=== PATIENT | female | born 1945 | race Caucasian/White ===

== ENCOUNTER → 2024-01-02 12:49 | Outpatient (REF) | payer OTHER, SELFPAY | LOC: RAD 12:49 | PROVIDERS: ATTENDING PHYSICIAN Surgery Vascular Surgery; FAMILY PHYSICIAN Family Medicine | DX: I65.29 Occlusion and stenosis of unspecified carotid artery (principal) | CPT/HCPCS: 93880 ==

== ENCOUNTER 2024-01-06 06:16 | Inpatient (IN) | payer OTHER, SELFPAY ==
[2024-01-03 11:00] VITALS: BMI 23.6
[2024-01-03 11:23] LABS: % Eosinophils 3.2 % (0-6); % Immature Granulocytes 0.4 % (0-0.5); % Monocytes 7.6 % (1.7-9.3); % Neutrophils 62.8 % (42.2-75.2); Absolute Basophils 0.1 10^3/uL (0-0.2); Absolute Eosinophils 0.3 10^3/uL (0-0.7); Absolute Lymphocytes 2.4 10^3/uL (1.2-3.4); Absolute Monocytes 0.7 10^3/uL (0.1-0.6); Hematocrit 39.8 % (37.0-47.0); Hemoglobin 13.2 g/dL (12.0-16.0); Mean Corp Hgb Conc. 33.2 g/dL (33.0-37.0); Mean Corpuscular Hgb 30.1 pg (27.0-31.0); Mean Corpuscular Volume 90.7 fL (81.0-99.0); Mean Platelet Volume 9.7 fL (7.4-10.4); Nucleated Red Blood Cells % 0 %; Platelet Count 303 10^3/uL (130-400); Red Blood Cell Count 4.39 10^6/uL (4.20-5.40); Red Cell Dist. Width 14.8 % (11.5-14.5); White Blood Cell Count 9.6 10^3/uL (4.8-10.8)
[2024-01-03 11:32] LABS: Blood Urea Nitrogen 22 mg/dl (7-17); Calcium 9.7 mg/dl (8.4-10.2); Carbon Dioxide 28 mmol/L (22-30); Chloride 102 mmol/L (98-107); Estimated Creatinine Clearance 56 ml/min; Glucose 100 mg/dl (70-99); Potassium 4.3 mmol/L (3.5-5.1); Sodium 139 mmol/L (135-145); eGFR > 60.00
[2024-01-03 13:03] LABS: APTT 26.8 Sec (23.4-35.0)
[2024-01-06] VITALS (19 sets, daily range): BP systolic 113–177; BP diastolic 55–84; BMI 23.4
[2024-01-06] MEDS: PERIDEX 0.12% ORAL RINSE 15 ML PO (06:43)
[2024-01-06] MEDS: BACTROBAN NASAL 1 GRAM NASAL (06:43)
--- NOTE | 2024-01-06 07:05 | W.SUR.PREOP ---
Addendum entered and electronically signed by Conrad Saucedo MD 01/06/24 07:07:
Recovered from COVID a little over a month ago. Has had mild persistent cough. No fevers/chills. Discussed risks/benefits of proceeding vs delaying. She understands all and wishes to proceed.
Original Note:
Pre-Operative Surgical Note
-
I have examined this patient prior to the performance of the scheduled procedure.
The patient's condition is unchanged from the time of the current History and
Physical and the patient is able to undergo the scheduled procedure.
--- NOTE | 2024-01-06 10:00 | W.SUR.POST ---
Surgical Immediate Post Op
Note
Pre Op Diagnosis: carotid stenosis
Post Op Diagnosis: same
Procedure Performed: Left CEA with bovine pericardial patch angioplasty with EEG monitoring
Primary Surgeon: Lewis
Assist: Tisha ELISE
Anesthesia: general
Estimated Blood Loss: 15cc
Fluids: see anesthesia flow sheet
Drains/Shunts: none
Specimens/Cultures: carotid plaque
Doppler/Duplex/Angio (Y/N):
Complications: none
Operative Findings: Woke from anesthesia moving all extremities
--- NOTE | 2024-01-06 10:03 | W.PV.INTER ---
VPI Note
Pre Admission Note
Functional Status: Light Work
Ambulation: Ambulate Independently
Pre Op Medications
Pre Op ASA: Yes
Pre Op Statin: No, for Medical Reason
Pre Op STACEY Inhibitor/ARB: No
Pre Op P2y12 Antagonist: None
Pre Op Beta Blockers: Chronic > 30 Days
Pre Op Chronic Anticoagulant: None
Pre Op Cilostazol: No
Post Op Medications
Post Op ASA: Yes
Post Op Statin: No, for Medical Reason
Post Op STACEY Inhibitor/ARB: No
Post Op P2y12 Antagonist: None
Post Op Beta Blockers: Chronic > 30 Days
Post Op Chronic Anticoagulant: None
Post Op Cilostazol: No
Modified [place]
Pre Op: 0
Post Op: 0
[2024-01-06] MEDS: DILAUDID 0.25 MG IV ×5 (10:29→11:56)
[2024-01-06 11:12] LABS: Hematocrit 35.4 % (37.0-47.0); Hemoglobin 11.8 g/dL (12.0-16.0); Mean Corp Hgb Conc. 33.3 g/dL (33.0-37.0); Mean Corpuscular Hgb 30.6 pg (27.0-31.0); Mean Corpuscular Volume 91.9 fL (81.0-99.0); Mean Platelet Volume 9.4 fL (7.4-10.4); Platelet Count 268 10^3/uL (130-400); Red Blood Cell Count 3.85 10^6/uL (4.20-5.40); Red Cell Dist. Width 14.8 % (11.5-14.5); White Blood Cell Count 13.3 10^3/uL (4.8-10.8)
[2024-01-06] MEDS: NSS 1000 IV ×2 (11:20→20:49)
[2024-01-06 11:24] LABS: INR 1.11; PT 14.2 Sec (11.4-14.6)
[2024-01-06 11:25] LABS: APTT 28.6 Sec (23.4-35.0); Blood Urea Nitrogen 22 mg/dl (7-17); Calcium 8.3 mg/dl (8.4-10.2); Carbon Dioxide 22 mmol/L (22-30); Chloride 110 mmol/L (98-107); Estimated Creatinine Clearance 48 ml/min; Glucose 115 mg/dl (70-99); Potassium 4.3 mmol/L (3.5-5.1); Sodium 138 mmol/L (135-145); eGFR > 60.00
[2024-01-06] MEDS: ASPIRIN 325 MG PO (12:23)
[2024-01-06] MEDS: TYLENOL 650 MG PO ×2 (13:49→23:59)
--- NOTE | 2024-01-06 13:56 | TRANSFER ---
Patient transferred to ICU, telephone and bedside report to [place]. Carola Omer RN BSN.
--- NOTE | 2024-01-06 14:34 | CON.INTV ---
Addendum entered and electronically signed by Natali Peralta DO 01/06/24 16:53:
I saw and evaluated the patient separately. I agree with the findings and the plan of care as documented in the resident's note.
AVSS.
GEN:� awake and comfortable, NAD
CV:� (+) S1/S2, reg
Resp:� CTA b/l
GI: soft NTND
Ext:� no edema
All relevant lab/imaging personally reviewed.
CXR showing hyperinflation/possible COPD
No prior PFTs for review
Plan:
Post op care as directed below/per surgical team
Neosynephrine for BP management
Advance diet as tolerated per team
OOB/mobility when able
COPD history noted, she has not been seen by pulmonary OP
We discussed outpatient FU
Likely to be discharged in AM if stable overnight
Total critical care time 65 mins -- this includes review of medical appointment clerk's history/presentation, separate physical examination, personal review of medications, hemodynamic parameters, laboratory data/imaging, discussion/coordinating care with
house staff, pharmacy, respiratory therapy, speedometer mechanic, nursing and updating patient's family.�
Original Note:
Consultation
Consultation Request
Date/Time Consultation Requested: 13:00
Date/Time Consultation Performed: 13:00
Medical History
-
Chief Complaint: Carotid Endarterectomy
History of Present Illness:
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 Recent hospitalization in November for dizziness where imaging
studies showed >70% stenosis in left internal carotid artery.
Past Medical History
Past Medical History: COPD, GERD, HTN, Hypercholesterolemia and Other (depression, anxiety, insomnia, osteoarthritis)
Past Surgical History: None
Social History
Tobacco: Smoker
Alcohol: None
Drug: None
Personal:
Family History
Family History: CAD and Diabetes
Allergies / Home Medications
Allergies
Allergy/AdvReac Type Severity Reaction Status Date / Time
ciprofloxacin [From Cipro] Allergy GI Verified 01/06/24 06:29
rosuvastatin [From Crestor] Allergy Myalgia Verified 01/06/24 06:29
Dxiqfnx-HCN-HkC Reductase AdvReac Myalgia, Verified 01/06/24 06:29
Inhibitor muscle
weakness
Home Medications
Medication Instructions Recorded Confirmed Last Taken Type
acetaminophen 650 mg 1,300 mg PO Q8H PRN mild pain 11/26/23 01/06/24 3 Weeks Ago History
tablet,extended release ~12/16/23
aspirin 325 mg tablet 325 mg PO NOON Blood Clot 11/26/23 01/06/24 01/05/24 12:00 History
Prevention/Tx
meloxicam 15 mg tablet 15 mg PO DAILY@1200 Pain 11/26/23 01/06/24 01/05/24 12:00 History
carvedilol 3.125 mg tablet 3.125 mg PO BID #60 tabs 11/28/23 01/06/24 01/06/24 05:30 Rx
cholecalciferol (vitamin D3) 50 2,000 unit PO DAILY #30 tabs 11/28/23 01/06/24 01/05/24 08:00 Rx
mcg (2,000 unit) tablet
cyanocobalamin (vitamin B-12) 1,000 mcg PO DAILY #30 tabs 11/28/23 01/06/24 01/05/24 08:00 Rx
1,000 mcg tablet
albuterol sulfate 90 mcg/actuation 2 puff inhalation Q6H PRN SOB 12/31/23 01/06/24 2 Weeks Ago History
aerosol inhaler ~12/23/23
guaifenesin 600 mg tablet, 600 mg PO BID 12/31/23 01/06/24 01/05/24 15:00 History
extended release 12 hr (Mucinex)
nifedipine 30 mg tablet,extended 30 mg PO NOON 12/31/23 01/06/24 01/05/24 12:00 History
release
Probiotic 1 tab PO QPM 01/06/24 01/06/24 01/05/24 19:00 History
Review of Systems
-
History Source: Patient
Constitutional: No Symptoms
Respiratory: Cough (n) and Trouble Breathing (n)
Cardiac: Chest Pain (n) and Palpitations (n)
Abdomen/GI: Abdominal Pain (n), Nausea (n), Vomiting (n) and Diarrhea (n)
Musculoskeletal: Edema (n)
Neuro: Dizzy
Vitals / Labs / Diagnostic Testing
Vital Signs
Temp Pulse Resp BP Pulse Ox
97.2 F 58 13 125/64 97
01/06/24 10:10 01/06/24 13:00 01/06/24 13:00 01/06/24 13:00 01/06/24 13:00
Lab Data
01/06/24 10:59
01/06/24 10:59
Laboratory Results
01/06/24
10:59
PT 14.2
INR 1.11
APTT 28.6
Diagnostic Testing:
Physical Exam
-
Cardiovascular: S1/S2, Regular Rhythm and Other (bradycardic)
Respiratory: Clear and Non-Labored Respirations
GI: Soft and Non Distended
Neurology: Awake, Alert and Oriented
Skin: Warm and Dry
General: Respiratory Distress (negative), Comfortable, Fever (negative) and Sweats (n)
Assessment
-
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
PLAN:
Carotid stenosis, status post left transcarotid endarterectomy
Bradycardia
Leukocytosis
Conditions prior to admission:
HTN
Hyperlipidemia
COPD
Tobacco use disorder
Status post CEA:
Continue Asp 325mg for clot prevention
Continue Carvedilol for tight BP control. Maintain SBP 100-150
Phenylephrine for BP <100
Q1hr neuro checks
Bradycardia lowest 48
- Asymptomatic. Likely secondary to sedatives and analgesics in post op period
- Monitor for changes in mental status, and cardiovascular symptoms
Leukocytosis:
Likely secondary to procedure.
Repeat CBC in AM
Creatinine 0.8
Monitor urine output
HTN:
Continue carvediol. Tight BP control in post-op period
COPD:
Albuterol sulfate PRN
Tobacco use disorder
- Nicotine patch as needed
DVT prophylaxis: Heparin SQ
Cose Status: Full Code
--- NOTE | 2024-01-06 15:09 | OR.RPT ---
Operative Report
Operative Report
PROCEDURE DATE: 01/06/2024
Preoperative diagnosis: Asymptomatic severe left carotid artery stenosis.
Postoperative diagnosis: Same
Procedure: Left carotid endarterectomy with bovine pericardial patch angioplasty and intraoperative EEG/SSEP monitoring.
Surgeon: Lewis
Cloth Winder Machine Operator: FREDRICK Giles, required for all aspects of procedure including traction/countertraction, assistance with following of suture line, assistance with closure.
Complications: None
Anesthesia: General
Indications for procedure:
78-year-old female with high-grade pinpoint like severe left carotid stenosis in the setting of soft plaque. Risk/benefits/alternatives of revascularization were extensively discussed. Patient understood all wish to proceed.
Description of procedure:
Patient was identified brought to the operating room placed on the table in supine position. After the adequate administration of anesthesia and perioperative antibiotics she was prepped and draped in the standard surgical fashion. A standard
preoperative timeout was undertaken and everybody was in agreement the plan. A standard longitudinal incision was made in the left neck that was carried through the skin subcutaneous tissue. Using the electrocautery dissection was carried through
the platysma muscle layer and then alongside the anterior medial border of the sternocleidomastoid muscle. Then using a combination of sharp dissection with the Metzenbaum scissors and electrocautery I dissected along the anterior medial border of
the internal jugular vein. The common facial vein branch was ligated between silk ties and then divided. An additional small crossing vein branch of the jugular was ligated between silk ties and then divided. I then deepened my retraction. The
common carotid artery was identified and carefully dissected away from the surrounding structures take great care to avoid any injury to the structures. A vessel loop was passed around it which was double looped, but not yet tightened. Note the
vagus nerve was protected from harm's way (coursing in its usual course posterior lateral to the common carotid artery). I then continued my dissection up the common carotid artery to the bulb staying only on the anterior surface of the carotid
artery. Then I carried the dissection up to the internal carotid artery and then to the distal internal carotid artery. I identified where it was soft and carefully circumferentially dissected the internal carotid artery with minimal mobilization
and passed a vessel loop around it. Note I dissected specifically a few centimeters distal to the origin of the internal carotid artery as I knew that there was a high endpoint based on the CT scan imaging. At this point the artery appeared
normal, without any plaque to gentle palpation as well. Note the hypoglossal nerve was preserved from harm's way. It was clearly visualized and protected. The patient was given an appropriate dose of heparin 5000 units. Next I dissected the
anterior surface of the external carotid artery and superior thyroid branches. These were then carefully circumferentially dissected with minimal mobilization and vessel loops passed around these which were double looped but not yet tightened.
After 3 minutes of heparin circulation time and confirmation of optimization of the blood pressure with my anesthesiology colleagues, I clamped the distal internal carotid artery where it was soft. There was no immediate EEG or SSEP changes. After
1 minute of test clamp time there was no changes noted. Therefore at this point, the vessel loops on the external carotid artery and superior thyroid branches were tightened and the common carotid artery was clamped where it was soft proximally.
An arteriotomy was made on the common carotid artery with an 11 blade and extended using a [place] scissor. I extended the arteriotomy onto the mid to distal internal carotid artery. There was mixed plaque, with soft plaque/hemorrhagic plaque
components in the proximal internal carotid artery resulting in severe stenosis. A [place] was then used to endarterectomized the plaque. An endarterectomy plane was created, and the plaque was then endarterectomized. Distally I feathered the
plaque out to a nice clean endpoint in the distal internal carotid artery. Next I endarterectomized the intima back to somewhat normal intima in the common carotid artery, and the intima was cut flush there. I then grasped the plaque and everted
plaque out of the origin of the external carotid artery. The plaque was then sent off for specimen. The origin of the external carotid artery was carefully visualized and any fine debris were removed with fine forceps. Proximal and distal
endpoints were then carefully inspected. Any fine debris was removed with fine forceps, and the intima was noted to be nicely adherent distally. Proximally, however, there was some loose intimal debris that I had to carefully tease out. In
addition the intima was not as well adherent. Therefore twice I had to get more proximal exposure in the common carotid artery carefully dissecting more proximally and moving my clamp more proximally and then extending my arteriotomy. Finally, I
was able to resolve to a nice domestic cleaner endpoint. Though it was in the direction of flow, to be sure, I placed a couple 6-0 Prolene posterior tacking sutures on the common carotid artery intima. Next any fine debris were removed throughout the
endarterectomy bed with fine forceps. I then flushed heparinized saline. I was very satisfied. Then, I used a bovine pericardial patch to sew a patch angioplasty with a running 6-0 Prolene suture. Prior to completing and tying down my suture
line, I backbled sequentially each branch and reclamped each branch prior to unclamping the next branch. I then irrigated with heparinized saline. Then I completed and tied down my suture line. We then restored flow in the common carotid and
external carotid arteries. Finally, we released flow in the internal carotid artery. There was excellent pulsatile flow in all 3 vessels. There was an excellent Doppler signal in the internal carotid artery distal to the patch with a good normal
low resistance Doppler signal. There was a good Doppler signal in the external carotid artery as well. A couple 6-0 Prolene eaozsy-ue-syeea sutures were placed along any bleeding points along the suture line. Protamine was given to reverse the
heparin. Hemostasis was completely achieved. We then irrigated and confirmed full hemostasis. We then closed in layers with 2-0 Vicryl layer to reapproximate the sternocleidomastoid muscle, followed by 3-0 Vicryl platysma muscle running layer,
followed by 4 Monocryl subcuticular stitch. Dermabond was applied. The patient tolerated procedure well. She awoke moving all extremities to command with tongue in the midline.
--- NOTE | 2024-01-06 15:31 | PTCARENOTE ---
Pt admitted to ICU bed 3372 from PACU at 1300. Pt AAOx3 and very pleasant. No facial droop noted. PERRL. ALVAREZ with equal strength bilaterally. Reports feeling slightly lightheaded that she reports having preop and came in with in November.
Reports neck pain improved. Tylenol given per PRN. Also reports some chronic back pain. Sinus Piotr. Tolerating clears. Order cholesterol lowering diet for dinner. Voiding on bedpan. BP stable via right radial a-line. All other assessments
unchanged.
[2024-01-06] MEDS: HEPARIN 5000 UNITS SC ×2 (16:45→23:57)
--- NOTE | 2024-01-06 19:41 | PTCARENOTE ---
received patient. oriented x4. denies pain. SB on monitor. r radial A line in place, leveled and zeroed, SBP in 140s. + pedal pulses. on RA, denies SOB, clear breath sounds noted. IVF infusing. L CEA site with minimal swelling. bedrest. plan of care
ongoing.
[2024-01-06] MEDS: ROXICODONE 5 MG PO (20:47)
[2024-01-06] MEDS: COREG 3.125 MG PO (20:48)
[2024-01-06] MEDS: MUCINEX PO (20:48)
[2024-01-07] VITALS (18 sets, daily range): BP systolic 124–206; BP diastolic 62–91; BMI 24.9
--- NOTE | 2024-01-07 00:05 | PTCARENOTE ---
patient reassessed. c/o 01/11 pain in L neck. site unchanged from earlier assessment. tylenol given, see MAR. otherwise assessments unchanged. repositions self. plan of care ongoing.
--- NOTE | 2024-01-07 04:35 | PTCARENOTE ---
patient reassessed. AM labs sent. arterial line leveled and zeroed. systems unchanged. c/o mild soreness in L neck. site unchanged. patient repositions self. plan of care ongoing.
[2024-01-07] MEDS: TYLENOL 650 MG PO ×2 (04:43→08:10)
[2024-01-07 04:51] LABS: Hemoglobin 10.8 g/dL (12.0-16.0); Mean Corp Hgb Conc. 32.7 g/dL (33.0-37.0); Mean Corpuscular Hgb 30.2 pg (27.0-31.0); Mean Corpuscular Volume 92.2 fL (81.0-99.0); Mean Platelet Volume 9.8 fL (7.4-10.4); Platelet Count 266 10^3/uL (130-400); Red Blood Cell Count 3.58 10^6/uL (4.20-5.40); Red Cell Dist. Width 14.9 % (11.5-14.5); White Blood Cell Count 14.9 10^3/uL (4.8-10.8)
[2024-01-07 05:00] LABS: INR 1.08; PT 13.8 Sec (11.4-14.6)
[2024-01-07 05:14] LABS: Blood Urea Nitrogen 20 mg/dl (7-17); Calcium 8.2 mg/dl (8.4-10.2); Carbon Dioxide 21 mmol/L (22-30); Chloride 112 mmol/L (98-107); Estimated Creatinine Clearance 56 ml/min; Glucose 105 mg/dl (70-99); Potassium 4.1 mmol/L (3.5-5.1); Sodium 135 mmol/L (135-145); eGFR > 60.00
[2024-01-07] MEDS: COREG 3.125 MG PO ×2 (06:00→20:09)
--- NOTE | 2024-01-07 06:06 | PTCARENOTE ---
0600- SBP 160-170s on arterial line (goal 100-150), BP cuff correlating well. Vascular notified, AM Coreg dose given early per MD. plan of care ongoing.
--- NOTE | 2024-01-07 07:12 | W.PN.INTV ---
Today's Communication / Plan
Recommendations
Doing well postoperatively, tolerating PO intake
Encouraged OOB/PT/ambulation
Discharge planning today per team
Can follow with us as outpatient for COPD if she wishes, info left in discharge
Assessment
-
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
Carotid stenosis, status post left transcarotid endarterectomy
Bradycardia
Leukocytosis
Conditions prior to admission:
HTN
Hyperlipidemia
COPD
Tobacco use disorder
Plan
Status post CEA:
Post op care as directed below/per surgical team
Neosynephrine for BP management--now off
Advance diet as tolerated per team
OOB/mobility when able
Continue Asp 325mg for clot prevention
Maintain SBP 100-150
Q1hr neuro checks
Bradycardia lowest 48
Asymptomatic. Likely secondary to sedatives and analgesics in post op period
Monitor for changes in mental status, and cardiovascular symptoms
Leukocytosis:
Likely secondary to procedure.
Repeat CBC in AM
Creatinine 0.8
Monitor urine output
HTN:
Continue carvedilol. Tight BP control in post-op period
COPD:
Albuterol sulfate PRN
COPD history noted, she has not been seen by pulmonary OP
We discussed outpatient FU
Tobacco use disorder
- Nicotine patch as needed
DVT prophylaxis: Heparin SQ
Code Status: Full Code
Likely to be discharged today
Total critical care time 35 mins -- this includes review of claim review medical director's history/presentation, separate physical examination, personal review of medications, hemodynamic parameters, laboratory data/imaging, discussion/coordinating care with
house staff, pharmacy, respiratory therapy, rn orthopaedics, nursing and updating patient's family.�
Subjective Dataa
Subjective Data
Date of Service:
Date of Service: January 07, 2024
Chief Complaint: Insurance Claim Auditor Follow Up
Subjective:
no new events
remains stable overnight
Objective Data
Data Reviewed
Vital Signs / I&O / Oxygen:
Vital Signs
Temp Pulse Resp BP Pulse Ox
97.8 F 65 12 163/64 95
01/07/24 04:10 01/07/24 06:30 01/07/24 06:30 01/07/24 06:00 01/07/24 06:30
Intake and Output
01/06/24 01/07/24 01/08/24
06:59 06:59 06:59
Intake Total 3090 / 3090
Output Total 350 / 350
Balance 2740 / 2740
SaO2 95
Nasal Cannula flow liters per 2
minute
Physical Exam
General: Comfortable and Other (NAD)
HEENT: Normocephalic, Anicteric, Moist Mucous Membranes and Other (incision noted)
Cardiovascular: S1-S2 and Regular Rhythm
Respiratory: Clear and Non-Labored Respirations
GI: Soft, Non Distended and Non Tender
Neurology: Awake, Alert, Oriented, AO x 3 and No Motor Deficits
Skin: Warm, Dry and Good Color
Labs/Micro/Reports
Lab Data
01/07/24 04:32
01/07/24 04:32
Laboratory Results
01/06/24 01/07/24
10:59 04:32
PT 14.2 13.8
INR 1.11 1.08
APTT 28.6 28.0
[2024-01-07] MEDS: HEPARIN 5000 UNITS SC ×3 (08:00→23:55)
[2024-01-07] MEDS: VITAMIN B-12 1000 MCG PO (08:00)
[2024-01-07] MEDS: MUCINEX 600 MG PO ×2 (08:00→20:08)
[2024-01-07] MEDS: NSS IV (08:01)
--- NOTE | 2024-01-07 08:45 | W.PN.VS ---
Addendum entered and electronically signed by Garrett Julian III, MD 01/07/24 17:22:
This patient was seen and examined with ARIK Shaw. I agree with the history and physical exam as well as the assessment and plan.
Signed:
Garrett Julian III, MD
[facility]
[phone] (cell)
Original Note:
Today's Communication / Plan
-
Seen and assessed at Dr. Julian
Assessment/Plan
-
POD 1 Left CEA
Plan:
-DC ascencion
-OOB/ambulate
-PO BP meds
-Diet
-Likely DC later today
Subjective Data
-
Date of Service: January 07, 2024
Patient seen at bedside this a.m. with Dr. Julian. Offers no complaints at this time, admits to slight headache earlier this morning which she contributes to lack of coffee and food. Since eating and having coffee she states the headache is almost
completely gone.
Objective Data
-
Vital Signs
Temp Pulse Resp BP Pulse Ox
97.7 F 68 20 147/70 98
01/07/24 07:35 01/07/24 08:20 01/07/24 08:20 01/07/24 08:20 01/07/24 08:21
Intake and Output
01/06/24 01/07/24 01/08/24
06:59 06:59 06:59
Intake Total 3090 / 3410 560 / 560
Output Total 350 / 350
Balance 2740 / 3060 560 / 560
Intake:
Oral fluids 1525 / 1765 480 / 480
IV fluids (Total) 1565 / 1645 80 / 80
Nss 1,000 ml @ 80 mls/hr IV . 1440 / 1520 80 / 80
[id number] Rx#:[id number]
ns 125 / 125
Output:
Urine, Voided 350 / 350
Other:
Number of approximated MODERATE 1
amounts of urine
How many times incontinent 1
MODERATE amount urine
Lab Results
01/07/24 04:32
01/07/24 04:32
Calcium 8.2 mg/dl (8.4-10.2) L 01/07/24 04:32
Total Bilirubin Cancelled 01/03/24 10:32
AST Cancelled 01/03/24 10:32
ALT Cancelled 01/03/24 10:32
Alkaline Phosphatase Cancelled 01/03/24 10:32
Total Protein Cancelled 01/03/24 10:32
Albumin Cancelled 01/03/24 10:32
Physical Exam
-
AAOx3
No tachypnea
No tachycardia
Abdomen soft
Neck site clean dry and intact, soft, well-approximated
Tongue midline, moves extremities equally
--- NOTE | 2024-01-07 09:13 | CM ---
CM following re: discharge planning.
Reviewed pt's chart, met with pt and pt's daughter Mela at bedside.
Pt is a 78 year old female, admitted with primary dx of POD#1 L CEA. per Vascular surgery pt will be discharge later this afternoon.
Pt reports she lives with son and his family in a 2SH, 3 steps to enter, has 2 supportive children. pt described herself as independent in all areas PTAS. No DME, VN or SNF history.
PCP: [facility]
Pharmacy: [facility].
D/C plan: home with no needs. Daughter to transport.
--- NOTE | 2024-01-07 09:30 | PTCARENOTE ---
Surgery rounds this am. Patient delined, 100% of breakfast taken. Out of bed to chair, supervision only no assist needed. Headache improved now more a 'stiff neck' warm blanket applied and reposition in chair pillows for comfort. Am cares in
bathroom with assist. Updated daughter at bedside. Continue to follow up teaching needs. Update vascular antiinflammatory medications at home and patient concerns. Will update and follow in afternoon rounds. Assessments and vital signs ongoing.
[2024-01-07] MEDS: TYLENOL 1000 MG PO ×2 (12:10→17:10)
[2024-01-07] MEDS: ASPIRIN 325 MG PO (12:10)
[2024-01-07] MEDS: PROCARDIA XL (EXTENDED RELEASE) 30 MG PO ×2 (12:15→15:44)
--- NOTE | 2024-01-07 13:34 | PTCARENOTE ---
Assessment unchanged. Still neck stiffness, and dull headache as reported earlier. Some relief with warm blanket to back, medication with evaluation and follow up via [place]. Follow up with pharmacy and vascular. In and out of bed to chair, ambulate
room, ambulate to bathroom. Continue to follow up vs trends with Bp medications as ordered.
[2024-01-07] MEDS: VITAMIN D3 (cholecalciferol) 50 MCG PO (14:02)
--- NOTE | 2024-01-07 14:13 | PTCARENOTE ---
Noted assessment changes, headache with continued improvement, improved neck stiffness, eating lunch, ambulating to bathroom and to chair with supervision only. Daughter at bedsdie, updated plan of cares, await vascular team for afternoon rounds.
--- NOTE | 2024-01-07 14:44 | CON.CAR ---
Consultation
Consultation Request
Date/Time Consultation Requested: 01/07/24 14:30
Date/Time Consultation Performed: 01/07/24 14:45
Requesting Provider: ARIK Quintanilla
Performing Provider: ARIK Kim for Dr. Blackwell
Reason for Consultation: Hypertension
Medical History
-
Chief Complaint: CEA
History of Present Illness:
Bety Fuller is a 78-year-old female (transitioning care to Dr. Arevalo), with hypertension, dyslipidemia, and current tobacco abuse who presented for scheduled left CEA after the discovery of greater than 70% stenosis in her left internal carotid
artery. She did not have any intraoperative complications. Cardiology was consulted for hypertension.
Past Medical History
Past Medical History: HTN, Hypercholesterolemia and Other (PAD)
Social History
Tobacco: Smoker
Alcohol: None
Drug: None
Employment: Retired
Family History
Family History: Reviewed & Not Pertinent
Allergies / Home Medications
Allergy/AdvReac Type Severity Reaction Status Date / Time
ciprofloxacin [From Cipro] Allergy GI Verified 01/06/24 06:29
rosuvastatin [From Crestor] Allergy Myalgia Verified 01/06/24 06:29
U[place]-JCG-PrY Reductase AdvReac Myalgia, Verified 01/06/24 06:29
Inhibitor muscle
weakness
Medication Instructions Recorded Confirmed Type
acetaminophen 650 mg 1,300 mg PO Q8H PRN mild pain 11/26/23 01/06/24 History
tablet,extended release
aspirin 325 mg tablet 325 mg PO NOON Blood Clot 11/26/23 01/06/24 History
Prevention/Tx
meloxicam 15 mg tablet 15 mg PO DAILY@1200 Pain 11/26/23 01/06/24 History
carvedilol 3.125 mg tablet 3.125 mg PO BID #60 tabs 11/28/23 01/06/24 Rx
cholecalciferol (vitamin D3) 50 2,000 unit PO DAILY #30 tabs 11/28/23 01/06/24 Rx
mcg (2,000 unit) tablet
cyanocobalamin (vitamin B-12) 1,000 mcg PO DAILY #30 tabs 11/28/23 01/06/24 Rx
1,000 mcg tablet
albuterol sulfate 90 mcg/actuation 2 puff inhalation Q6H PRN SOB 12/31/23 01/06/24 History
aerosol inhaler
guaifenesin 600 mg tablet, 600 mg PO BID Cough 12/31/23 01/06/24 History
extended release 12 hr (Mucinex)
nifedipine 30 mg tablet,extended 30 mg PO NOON Blood Pressure 12/31/23 01/06/24 History
release
Probiotic 1 tab PO QPM Gastrointestinal Issue 01/06/24 01/06/24 History
Review of Systems
-
History Source: Patient
All other systems: Negative unless noted
Respiratory: No Symptoms
Cardiac: No Symptoms
Abdomen/GI: No Symptoms
Physical Exam
Vital Signs
Temp Pulse Resp BP Pulse Ox
98.4 F 64 20 171/72 100
01/07/24 13:32 01/07/24 13:32 01/07/24 13:32 01/07/24 13:32 01/07/24 13:33
Lab Results
01/07/24 04:32
01/07/24 04:32
Physical Exam
General: Well Developed, Well Nourished, No Apparent Distress and Comfortable
HEENT: Normocephalic, Anicteric and Moist Mucous Membranes
Respiratory: Clear and Non Labored Respirations
Cardiac: S1/S2, Regular Rhythm and Peripheral Edema (trace LE)
Breast: Deferred by me
GI: Soft, Non Tender, Non Distended and Normal Bowel Sounds
Rectal: Deferred by Provider
Genito-urinary: No Costovertebral Tender
Musculoskeletal: No Clubbing, No Cyanosis and No Edema
Skin: Warm and Dry
Neuro: AO x 3
Hematologic/Lymphatic: No Lymphadenopathy
Psych: Calm
Impression / Plan
-
CEA, left 01/06/[address] Saucedo - care per Vascular
HTN
-BP above goal
-Continue carvedilol 3.125mg BID cannot be advanced due to HR
-Increase Nifedipine from 30mg daily to 60mg daily
-Management by PCP technician terminal and repeater
HLD
-LDL 116, goal < 55
-Appears to be statin intolerant (myalgia)
-Anticipate PCSK9 initiation in the outpatient setting, this was discussed with her
Current smoker, cessation recommended
Recent Covid-19 (12/04/23)
Data Reviewed
-
Radiology: Report Reviewed by me (CRX: No radiographic evidence of acute cardiopulmonary abnormality.)
Medical Tests (Nuc Med, Echo etc): Report Reviewed by me (Echo 11/2023: EF 55-60%. Mild MR. Mild TR.)
Labs: Labs Reviewed by me
Old Records: Reviewed
--- NOTE | 2024-01-07 14:46 | PTCARENOTE ---
Vascular team at bedside with patient and family continue to follow plan of cares. Update new orders and continue to follow. Patient oob for lunch and request to relax in chair for afternoon. Continue with teaching and supportive cares. Await
pharmacy and update plan of cares. Cardiology consult ordered will follow
--- NOTE | 2024-01-07 15:56 | PTCARENOTE ---
Cardiology at bedside. Update orders plan of cares and medication follow up. Continue trends in vital signs as ordered. Improved overall headache and neck stiffness.
--- NOTE | 2024-01-07 17:46 | PTCARENOTE ---
Dr Blackwell at bedside with patient updated plan of cares follow up trends. Assessment unchanged thru day. Continue to update and follow labs, assessment and vital sign trends.
[2024-01-07] MEDS: ROXICODONE 5 MG PO (20:08)
[2024-01-08] VITALS (15 sets, daily range): BP systolic 128–191; BP diastolic 67–98; BMI 23.4
--- NOTE | 2024-01-08 00:41 | PTCARENOTE ---
patient reassessed. oriented x4. oob with supervision to bathroom throughout night. c/o mild pain in head and L neck area, meds given, see JAN. L CEA site with minimal swelling. plan of care ongoing. hopeful discharge today.
[2024-01-08] MEDS: TYLENOL 1000 MG PO ×2 (03:50→10:05)
--- NOTE | 2024-01-08 05:04 | PTCARENOTE ---
patient reassessed. systems unchanged. AM labs sent. pt repositioning self in bed. plan of care ongoing.
[2024-01-08 05:37] LABS: Hematocrit 39.3 % (37.0-47.0); Hemoglobin 13.4 g/dL (12.0-16.0); Mean Corp Hgb Conc. 34.1 g/dL (33.0-37.0); Mean Corpuscular Hgb 30.5 pg (27.0-31.0); Mean Corpuscular Volume 89.3 fL (81.0-99.0); Mean Platelet Volume 9.7 fL (7.4-10.4); Platelet Count 319 10^3/uL (130-400); Red Cell Dist. Width 14.9 % (11.5-14.5); White Blood Cell Count 14.3 10^3/uL (4.8-10.8)
[2024-01-08 05:40] LABS: Blood Urea Nitrogen 13 mg/dl (7-17); Calcium 9.2 mg/dl (8.4-10.2); Carbon Dioxide 27 mmol/L (22-30); Chloride 106 mmol/L (98-107); Estimated Creatinine Clearance 56 ml/min; Glucose 113 mg/dl (70-99); Potassium 3.6 mmol/L (3.5-5.1); Sodium 138 mmol/L (135-145); eGFR > 60.00
--- NOTE | 2024-01-08 07:19 | W.PN.INTV ---
Today's Communication / Plan
Recommendations
Doing well, off IV meds
Ongoing BP management per team
Encouraged OOB/PT
Can likely transfer to tele, we will sign off upon transfer
Assessment
-
78 yr old female with history of HTN, COPD, nicotine dependency, presents to the ICU from the catheterization laboratory technician following a left transcarotid endarterectomy for severe left carotid stenosis.
Carotid stenosis, status post left transcarotid endarterectomy 01/06/24
Bradycardia
Leukocytosis
Hypertensive urgency
HAs
Conditions prior to admission:
HTN
Hyperlipidemia
COPD
Tobacco use disorder
Plan
Status post CEA: post op day #2
Post op care as directed below/per surgical team
Hypertension noted
Adjustments per cards
Pain control for HAs/tylenol
Advance diet as tolerated per team
OOB/mobility when able
Continue Asp 325mg for clot prevention
Maintain SBP 100-150
Q1hr neuro checks
Bradycardia lowest 48
Asymptomatic. Likely secondary to sedatives and analgesics in post op period
Monitor for changes in mental status, and cardiovascular symptoms
Leukocytosis:
Likely secondary to procedure.
Repeat CBC in AM
Creatinine 0.8
Monitor urine output
HTN:
Continue carvedilol. Tight BP control in post-op period
COPD:
Albuterol sulfate PRN
COPD history noted, she has not been seen by pulmonary OP
We discussed outpatient FU
Tobacco use disorder
- Nicotine patch as needed
DVT prophylaxis: Heparin SQ
Code Status: Full Code
Likely to be discharged today
Total critical care time 35 mins -- this includes review of resident medical officer's history/presentation, separate physical examination, personal review of medications, hemodynamic parameters, laboratory data/imaging, discussion/coordinating care with
house staff, pharmacy, respiratory therapy, vending mechanic, nursing and updating patient's family.�
Subjective Dataa
Subjective Data
Date of Service:
Date of Service: January 08, 2024
Chief Complaint: Plant Control Aide Follow Up
Subjective:
BP elevated
YIN ongoing 02/11
Otherwise stable
Objective Data
Data Reviewed
Vital Signs / I&O / Oxygen:
Vital Signs
Temp Pulse Resp BP Pulse Ox
98.1 F 68 17 175/72 95
01/07/24 23:30 01/08/24 06:00 01/08/24 06:00 01/08/24 06:00 01/08/24 04:49
Intake and Output
01/07/24 01/08/24 01/09/24
06:59 06:59 06:59
Intake Total 3090 / 3410 2240 / 2240
Output Total 350 / 350
Balance 2740 / 3060 2240 / 2240
SaO2 95
Nasal Cannula flow liters per 2
minute
Physical Exam
General: Comfortable and Other (NAD)
HEENT: Normocephalic, Anicteric, Moist Mucous Membranes and Other (incision noted)
Cardiovascular: S1-S2 and Regular Rhythm
Respiratory: Clear and Non-Labored Respirations
GI: Soft, Non Distended and Non Tender
Neurology: Awake, Alert, Oriented, AO x 3 and No Motor Deficits
Skin: Warm, Dry and Good Color
Labs/Micro/Reports
Lab Data
01/08/24 05:02
01/08/24 05:02
[2024-01-08] MEDS: TYLENOL PO (07:29)
[2024-01-08] MEDS: COREG 3.125 MG PO ×2 (07:30→08:37)
[2024-01-08] MEDS: VITAMIN D3 (cholecalciferol) 50 MCG PO (07:30)
[2024-01-08] MEDS: MUCINEX 600 MG PO ×2 (07:30→20:01)
[2024-01-08] MEDS: VITAMIN B-12 1000 MCG PO (07:30)
[2024-01-08] MEDS: HEPARIN SC ×3 (07:31→23:13)
--- NOTE | 2024-01-08 07:39 | W.PN.VS ---
Addendum entered and electronically signed by Conrad Saucedo MD 01/08/24 12:44:
Seen and examined with DIRECTOR OF RESTAURANTS. Agree with findings as noted below. Left neck incision clean dry and intact, no hematoma. Neurologically no focal deficits. Tongue midline. CT head negative. No evidence of bleed. Obtained secondary to continued
headache. Continue blood pressure management to help alleviate. NSAIDs if needed. Plan otherwise as discussed and noted below.
Original Note:
Today's Communication / Plan
-
Patient seen and examined at bedside with Dr. Conrad Saucedo, below plan reviewed with attending.
Assessment/Plan
-
POD 2 Left CEA and hypertension
Plan:
Non-contrast head CT to rule out abnormality post CEA given patient reports persistent headache overnight
If non-contrast head CT does not demonstrate change will initiate NSAID as additional pain management/headache relief
Appreciate cardiology recommendations for BP control, goal of SBP less than 160
Possible discharge later this afternoon if BP at goal and headache improves
Subjective Data
-
Date of Service: January 08, 2024
Patient reports persistent headache over left eye socket (initially improved to near resolved last evening), but overnight worsened and she is now calling it persistent. Denies nausea, vomiting, fever, chills, vision changes, and/or unilateral
weakness. Reports tolerating PO diet.
Objective Data
-
Vital Signs
Temp Pulse Resp BP Pulse Ox
98.1 F 68 17 175/72 95
01/07/24 23:30 01/08/24 06:00 01/08/24 06:00 01/08/24 06:00 01/08/24 04:49
Intake and Output
01/07/24 01/08/24 01/09/24
06:59 06:59 06:59
Intake Total 3090 / 3410 2240 / 2240
Output Total 350 / 350
Balance 2740 / 3060 2240 / 2240
Intake:
Oral fluids 1525 / 1765 2160 / 2160
IV fluids (Total) 1565 / 1645 80 / 80
Nss 1,000 ml @ 80 mls/hr IV . 1440 / 1520 80 / 80
[id number] MEY Rx#:[id number]
ns 125 / 125
Output:
Urine, Voided 350 / 350
Other:
Number of approximated MODERATE 1 1
amounts of urine
How many times incontinent 1
MODERATE amount urine
Lab Results
01/08/24 05:02
01/08/24 05:02
Calcium 9.2 mg/dl (8.4-10.2) 01/08/24 05:02
Total Bilirubin Cancelled 01/03/24 10:32
AST Cancelled 01/03/24 10:32
ALT Cancelled 01/03/24 10:32
Alkaline Phosphatase Cancelled 01/03/24 10:32
Total Protein Cancelled 01/03/24 10:32
Albumin Cancelled 01/03/24 10:32
Physical Exam
-
AAOx3
No tachypnea
No tachycardia
Abdomen soft
Neck site clean dry and intact, soft, well-approximated
Tongue midline, moves extremities equally
--- NOTE | 2024-01-08 10:38 | W.PN.CD ---
Today's Communication / Plan
-
increase coreg to 6.25mg po bid
add hydralazine 20mg po tid
Impression / Plan
-
CEA, left 01/06/[address] Saucedo - care per Vascular
HTN
-BP above goal
-Increase carvedilol to 6.25mg BID
-01/08/24 Nifedipine from 30mg daily to 60mg daily
-add hydralazine 20mg po tide
-Management by [facility] [place] [facility]
HLD
-LDL 116, goal < 55
-Appears to be statin intolerant (myalgia)
-Anticipate PCSK9 initiation in the outpatient setting, this was discussed with her, will revisit as an outpatient
Current smoker, cessation recommended---Today she is telling me she quit
Recent Covid-19 (12/04/23)
Subjective:
she has a constant dull headache, she has no cp or sob.
Physical Exam
Vital Signs/Labs
Vital Signs
Temp Pulse Resp BP Pulse Ox
98.1 F 68 17 175/72 95
01/08/24 08:19 01/08/24 06:00 01/08/24 06:00 01/08/24 06:00 01/08/24 04:49
01/07/24 01/08/24 01/09/24
06:59 06:59 06:59
Actual Weight 57.9 kg 54.3 kg
01/08/24 05:02
01/08/24 05:02
PT 13.8 Sec (11.4-14.6) 01/07/24 04:32
INR 1.08 01/07/24 04:32
APTT 28.0 Sec (23.4-35.0) 01/07/24 04:32
Physical Exam
Constitutional: No acute distress
Cardiovascular: Rhythm & rate is regular, Pedal edema is absent, JVD pressure is normal, Systolic murmur absent and Diastolic murmur absent
Respiratory: Respiratory effort normal, Lungs clear to auscul., Wheeze Absent, Crackles Absent and Rhonchi Absent
Neuro/Psych: AO x 3
Data Reviewed
-
Date of Service: January 08, 2024
EKG: Other (nsr)
[2024-01-08] MEDS: APRESOLINE 20 MG PO ×2 (11:36→20:04)
[2024-01-08] MEDS: MOBIC 15 MG PO (12:12)
[2024-01-08] MEDS: MOBIC PO (12:13)
[2024-01-08] MEDS: PROCARDIA XL (EXTENDED RELEASE) 60 MG PO (12:13)
[2024-01-08] MEDS: ASPIRIN 325 MG PO (12:13)
--- NOTE | 2024-01-08 13:30 | PTCARENOTE ---
Pt AAOx3 and pleasant. Neuro checks WNL. Left neck incision C/D/I. Sinus rhythm. BP remains elevated. New order for Hydralazine. Educated pt on new med and given printed information. Ambulated to bathroom with steady gait. Appetite improved
today. All other assessments unchanged.
[2024-01-08] MEDS: TYLENOL 650 MG PO (20:01)
[2024-01-08] MEDS: COREG 6.25 MG PO (20:01)
--- NOTE | 2024-01-08 20:24 | PTCARENOTE ---
received patient. oriented x4. currently OOB in chair. c/o mild YIN, tylenol given - see MAR. tele level of care. hygiene done independently. plan of care ongoing.
[2024-01-09 01:50] VITALS: BP 149/84
[2024-01-09 05:56] VITALS: BMI 23.4
[2024-01-09] MEDS: TYLENOL 650 MG PO (05:56)
[2024-01-09 06:16] VITALS: BP 185/86
--- NOTE | 2024-01-09 06:20 | PTCARENOTE ---
patient reassessed. BP remains elevated. tylenol given for mild YIN, see MAR. no AM labs ordered. plan of care ongoing.
[2024-01-09 06:40] VITALS: BP 188/94
[2024-01-09] MEDS: COREG 6.25 MG PO (07:21)
[2024-01-09] MEDS: VITAMIN B-12 1000 MCG PO (07:21)
[2024-01-09] MEDS: HEPARIN SC (07:22)
[2024-01-09] MEDS: APRESOLINE 20 MG PO (07:22)
[2024-01-09] MEDS: MUCINEX 600 MG PO (07:22)
[2024-01-09] MEDS: VITAMIN D3 (cholecalciferol) 50 MCG PO (07:22)
--- NOTE | 2024-01-09 08:13 | W.PN.VS ---
Addendum entered and electronically signed by Conrad Saucedo MD 01/09/24 13:21:
Late entry. Seen and examined earlier this a.m. with FREDRICK Giles. Agree with findings as noted below. BP noted. Left neck incision clean dry and intact. No hematoma. Neurologically no focal deficits. Tongue midline. Plan/as discussed and noted
below.
Original Note:
Today's Communication / Plan
-
Seen and assessed with Dr. Saucedo
Assessment/Plan
-
POD 3 Left CEA and hypertension
Plan:
Appreciate cardiology recommendations, increased hydralazine frequency back to 3 times daily
Possible discharge later this afternoon if BP at goal and headache improves
Subjective Data
-
Date of Service: January 09, 2024
Patient seen at bedside this a.m. with Dr. Saucedo. Patient states headache from yesterday had subsided when blood pressure had decreased. But late last night her BP delphine again and the headache returned. Headache is remained a 3 out of 10 'ache' for
the remainder of the night. This morning her blood pressure is still elevated and she complains of a dull ache headache. No other events overnight
Objective Data
-
Vital Signs
Temp Pulse Resp BP Pulse Ox
98.5 F 77 14 188/94 96
01/09/24 07:26 01/09/24 07:22 01/08/24 07:00 01/09/24 07:22 01/09/24 05:08
Intake and Output
01/08/24 01/09/24 01/10/24
06:59 06:59 06:59
Intake Total 2240 / 2240 1020 / 1020
Balance 2240 / 2240 1020 / 1020
Intake:
Oral fluids 2160 / 2160 1020 / 1020
IV fluids (Total) 80 / 80
Nss 1,000 ml @ 80 mls/hr IV . 80 / 80
[id number] MEY Rx#:[id number]
Other:
Number of approximated MODERATE 1 1
amounts of urine
Number of approximated LARGE 2
amounts of urine
Lab Results
01/08/24 05:02
01/08/24 05:02
Calcium 9.2 mg/dl (8.4-10.2) 01/08/24 05:02
Total Bilirubin Cancelled 01/03/24 10:32
AST Cancelled 01/03/24 10:32
ALT Cancelled 01/03/24 10:32
Alkaline Phosphatase Cancelled 01/03/24 10:32
Total Protein Cancelled 01/03/24 10:32
Albumin Cancelled 01/03/24 10:32
Physical Exam
-
AAOx3
No tachypnea
No tachycardia
Abdomen soft
Neck site clean dry and intact, soft, well-approximated
Tongue midline, moves extremities equally
--- NOTE | 2024-01-09 08:21 | W.PN.CD ---
Today's Communication / Plan
-
increase hydralazine 25po tid
when she goes home she will take nifedipine in the am.
ok to discharge home
Impression / Plan
-
CEA, left 01/06/[address] Saucedo - care per Vascular
HTN
-BP improving
-Increase carvedilol to 6.25mg BID
-01/08/24 Nifedipine from 30mg daily to 60mg daily
-increase hydralazine to 25mg po tid
-will arrange short term follow up
HLD
-LDL 116, goal < 55
-Appears to be statin intolerant (myalgia)
-Anticipate PCSK9 initiation in the outpatient setting, this was discussed with her, will revisit as an outpatient
Current smoker, cessation recommended---Today she is telling me she quit
Recent Covid-19 (12/04/23)
Subjective:
she has a constant dull headache but much improved with bp control
Physical Exam
Vital Signs/Labs
Vital Signs
Temp Pulse Resp BP Pulse Ox
98.5 F 77 14 188/94 96
01/09/24 07:26 01/09/24 07:22 01/08/24 07:00 01/09/24 07:22 01/09/24 05:08
01/08/24 01/09/24 01/10/24
06:59 06:59 06:59
Actual Weight 54.3 kg 54.3 kg
01/08/24 05:02
01/08/24 05:02
PT 13.8 Sec (11.4-14.6) 01/07/24 04:32
INR 1.08 01/07/24 04:32
APTT 28.0 Sec (23.4-35.0) 01/07/24 04:32
Physical Exam
Constitutional: No acute distress
Cardiovascular: Rhythm & rate is regular, Pedal edema is absent, JVD pressure is normal, Systolic murmur absent and Diastolic murmur absent
Respiratory: Respiratory effort normal, Lungs clear to auscul., Wheeze Absent, Crackles Absent and Rhonchi Absent
Neuro/Psych: AO x 3
Data Reviewed
-
Date of Service: January 09, 2024
[2024-01-09] MEDS: TYLENOL 1000 MG PO (11:04)
[2024-01-09] MEDS: MOBIC 15 MG PO (11:04)
[2024-01-09] MEDS: ASPIRIN 325 MG PO (11:04)
[2024-01-09] MEDS: PROCARDIA XL (EXTENDED RELEASE) 60 MG PO (11:05)
[2024-01-09 11:08] VITALS: BP 187/92
--- NOTE | 2024-01-09 11:26 | PTCARENOTE ---
Pts BP 180s systolic at 8AM. BP meds given. BP still elevated at 187/92. scheduled nifepidine PO given. Dr. Arevalo made aware of pts elevated BP and meds administered
[2024-01-09 12:00] VITALS: BP 130/79
--- NOTE | 2024-01-09 12:05 | W.PN.UPDATE ---
Update Note
Progress Note Update
Current BP 130/79. Pt stable for DC.
--- NOTE | 2024-01-09 12:06 | W.DS.TRANS ---
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
-
Discharge Instructions:
Discharge Diagnosis/Procedures Left Carotid Endarterectomy
Diet As tolerated
Activity No strenuous activity
Driving Restrictions Not until seen by your Dr
Bathing Restrictions OK to Shower
Instructions:
Stand-Alone Forms: DC Instr - Vascular OR
Changes to Home Medications: Yes
Discharge Medications:
DC Medications w/original date entered in [employer]
acetaminophen 650 mg tablet,extended release 1,300 mg PO Q8H PRN mild pain 11/26/23
aspirin 325 mg tablet 325 mg PO NOON Blood Clot Prevention/Tx 11/26/23
meloxicam 15 mg tablet 15 mg PO DAILY@1200 Pain 11/26/23
carvedilol 3.125 mg tablet 3.125 mg PO BID #60 tabs 11/28/23
cholecalciferol (vitamin D3) 50 mcg (2,000 unit) tablet 2,000 unit PO DAILY #30 tabs 11/28/23
cyanocobalamin (vitamin B-12) 1,000 mcg tablet 1,000 mcg PO DAILY #30 tabs 11/28/23
albuterol sulfate 90 mcg/actuation aerosol inhaler 2 puff inhalation Q6H PRN SOB 12/31/23
guaifenesin 600 mg tablet, extended release 12 hr (Mucinex) 600 mg PO BID Cough 12/31/23
nifedipine 30 mg tablet,extended release 30 mg PO NOON Blood Pressure 12/31/23
Probiotic 1 tab PO QPM Gastrointestinal Issue 01/06/24
carvedilol 3.125 mg tablet 6.25 mg PO BID #120 tabs 01/09/24
hydralazine 25 mg tablet 25 mg PO TID #180 tabs 01/09/24
nifedipine 60 mg tablet,extended release 60 mg PO NOON #60 tabs 01/09/24
Home Medication Changes
Nifedipine increased
Hydralazine added
Carvedilol increased
Pending Results: No
--- NOTE | 2024-01-09 12:36 | CM ---
CM following re:discharge planning.
Reviewed pt's chart, met with pt and pt's son Jose at bedside.
Discharge order is noted. Both pt and her son are aware, expressed their agreement with discharge. IMM reviewed, placed in chart, pt has a copy.
Pt reports she does not need any after care VN services, has no headache anymore.
D/C plan: home no needs. Son to transport.
== END 2024-01-09 13:00 | disposition home or self-care (01) | DRG 39 ==
LOC: ICU 06:16
PROVIDERS: Nurse Practitioner; Nurse Practitioner Acute Care; ADMITTING PHYSICIAN Surgery Vascular Surgery; CONSULT PHYSICIAN Internal Medicine; CONSULT PHYSICIAN Internal Medicine Cardiovascular Disease; FAMILY PHYSICIAN Family Medicine
PROC: 03CL0ZZ Extirpation of Matter from Left Internal Carotid Artery, Open Approach (ICD-10-PCS; 2024-01-06)
PROC: 03UL0KZ Supplement Left Internal Carotid Artery with Nonautologous Tissue Substitute, Open Approach (ICD-10-PCS; 2024-01-06)
DX: I65.22 Occlusion and stenosis of left carotid artery (principal); I16.0 Hypertensive urgency; I10 Essential (primary) hypertension; E78.00 Pure hypercholesterolemia, unspecified; F17.200 Nicotine dependence, unspecified, uncomplicated; J44.9 Chronic obstructive pulmonary disease, unspecified
CPT/HCPCS: 88304; 88311; 35301; 36415; 70450; 71046; 80048; 85025; 85027; 85610; 85730; 86850; 86900; 86901

== ENCOUNTER → 2024-02-10 10:54 | Outpatient (REF) | payer OTHER, SELFPAY | LOC: RAD 10:54 | PROVIDERS: ATTENDING PHYSICIAN Registered Nurse; FAMILY PHYSICIAN Student in an Organized Health Care Education/Training Program | DX: I65.29 Occlusion and stenosis of unspecified carotid artery (principal) | CPT/HCPCS: 93880 ==

== ENCOUNTER → 2024-09-18 10:33 | Outpatient (REF) | payer OTHER, SELFPAY | LOC: HWRAD 10:33 | PROVIDERS: ATTENDING PHYSICIAN Surgery Vascular Surgery; FAMILY PHYSICIAN Student in an Organized Health Care Education/Training Program | DX: I65.29 Occlusion and stenosis of unspecified carotid artery (principal); R06.02 Shortness of breath | CPT/HCPCS: 71046 ==

== ENCOUNTER → 2025-01-25 09:54 | Outpatient (REF) | payer OTHER, SELFPAY | LOC: HWRAD 09:54 | PROVIDERS: ATTENDING PHYSICIAN Surgery Vascular Surgery; FAMILY PHYSICIAN Student in an Organized Health Care Education/Training Program | DX: I65.29 Occlusion and stenosis of unspecified carotid artery (principal) | CPT/HCPCS: 93880 ==

== ENCOUNTER → 2025-10-18 07:51 | Outpatient (REF) | payer OTHER, SELFPAY | LOC: HWRAD 07:51 | PROVIDERS: ATTENDING PHYSICIAN Student in an Organized Health Care Education/Training Program | DX: R10.9 Unspecified abdominal pain (principal); R11.0 Nausea | CPT/HCPCS: 76700 ==

== ENCOUNTER → 2025-10-25 09:57 | Outpatient (REF) | payer OTHER, SELFPAY | LOC: DHVS 09:57 | PROVIDERS: ATTENDING PHYSICIAN Physician Assistant; FAMILY PHYSICIAN Student in an Organized Health Care Education/Training Program | DX: I65.29 Occlusion and stenosis of unspecified carotid artery (principal) | CPT/HCPCS: 93880 ==